=== PATIENT | female | born 1965 | race Caucasian/White ===

== ENCOUNTER 2018-05-16 08:43 | Inpatient (IN) | payer BC ==
[2018-05-16 10:37] VITALS: BMI 21.6
--- NOTE | 2018-05-16 13:09 | HP ---
CIWA Score - CIWA Score Nausea/Vomitin-Mild Nausea/No Vomiting Muscle Tremors: 3 Anxiety: 3 Agitation: 3 Paroxysmal Sweats: 3 Orientation: 0-Oriented Tacttile Disturbances: 1-Very Mild Itch/Numbness Auditory Disturbances: 0-None Visual Disturbances: 2-Mild Sensitivity Headache: 0-None Present CIWA-Ar Total Score: 16 Admission ROS BHS - HPI Chief Complaint: I thought I was going to , I need to detox from alcohol. m Allergies/Adverse Reactions: Allergies Allergy/AdvReac Type Severity Reaction Status Date / Time erythromycin base Allergy Severe Rash Verified 05/16/18 10:41 penicillin G Allergy Severe Rash Verified 05/16/18 10:41 History of Present Illness: %2 y/o f pt started drinking alcohol starting at age 13. Pt has h/o tremors, DT' s and holiday heart(A fib) who is now seeking detox. - Ebola screening Have you traveled outside of the country in the last 21 days: No Have you had contact with anyone from an Ebola affected area: No Have you been sick,other than usual withdrawal symptoms: No Do you have a fever: No - Review of Systems Constitutional: Chills, Diaphoresis, Loss of Appetite, Malaise, Night Sweats, Changes in sleep, Unintentional Wgt. Loss EENT: reports: Blurred Vision (OS> OD -dragged fovea), Double Vision (h/o detached retinas) Respiratory: reports: No Symptoms reported Cardiac: reports: Palpitations (a fib) GI: reports: Nausea, Poor Appetite, Indigestion, Abdominal cramping : reports: No Symptoms Reported Musculoskeletal: reports: No Symptoms Reported Integumentary: reports: Dryness Neuro: reports: Numbness, Seizure (withdrawal sz), Tingling, Tremors, Weakness, Unsteady Gait, Dizziness, Other (s/p fall hit occipital area at home . Went too [facility] Ed had a negative CT ; given info on concussion) Endocrine: reports: No Symptoms Reported, [place] Hematology: reports: No Symptoms Reported Psychiatric: reports: Anxious, Depressed Other Systems: Reviewed and Negative Patient History - Patient Medical History Hx Anemia: No Hx Asthma: No Hx Chronic Obstructive Pulmonary Disease (COPD): No Hx Cancer: No Hx Cardiac Disorders: Yes (atrial fibrillation in 12/2017) Hx Congestive Heart Failure: No Hx Hypertension: No Hx Hypercholesterolemia: No Hx Pacemaker: No HX Cerebrovascular Accident: No Hx Seizures: Yes (alcohol related-last episode was in 12/2017) Hx Dementia: No Hx Diabetes: No Hx Gastrointestinal Disorders: Yes (gastiritis) Hx Liver Disease: Yes (fatty liver ) Hx Genitourinary Disorders: No Hx Sexually Transmitted Disorders: No Hx Renal Disease (ESRD): No Hx Thyroid Disease: No Hx Human Immunodeficiency Virus (HIV): No Hx Hepatitis C: No Hx Depression: Yes Hx Suicide Attempt: No Hx Schizophrenia: No - Patient Surgical History Past Surgical History: No Hx Neurologic Surgery: No Hx Cataract Extraction: No Hx Cardiac Surgery: No Hx Lung Surgery: No Hx Breast Surgery: No Hx Breast Biopsy: No Hx Abdominal Surgery: No Hx Appendectomy: No Hx Cholecystectomy: No Hx Genitourinary Surgery: No Hx Section: Yes (x3) Hx Orthopedic Surgery: No Other Surgical History: h/o multiple detached retinas -opthamology Anesthesia Reaction: No - PPD History Previous Implant?: Yes Documented Results: Negative w/o proof Implanted On Prior [facility] Admission?: No PPD to be Administered?: Yes - Reproductive History Patient is a Female of Child Bearing Age (11 -55 yrs old): Yes Last Menstrual Period: 05/23/06 Patient : No - Smoking Cessation Smoking history: Never smoked Hx Chewing Tobacco Use: No Initiated information on smoking cessation: No 'Breaking Loose' booklet given: 05/16/18 - Substance & Tx. History Hx Alcohol Use: Yes Hx Substance Use: No Substance Use Type: Alcohol Hx Substance Use Treatment: Yes (multiple detox's and rehabs , [place], [place], [facility].) - Substances Abused Alcohol-wine Route: Oral Frequency: Daily Amount used: 4 pts.wine Age of first use: 13 Date of Last Use: 05/16/18 Family Disease History - Family Disease History Family Disease History: [place]: Father (prostate ca ), Respiratory: Sister (copd), Other: Mother (htn , dementia ) Admission Physical Exam BHS - Vital Signs Vital Signs: Vital Signs - 24 hr 05/16/18 10:34 Temperature 98 F Pulse Rate 95 H Respiratory 17 Rate Blood Pressure 139/91 52 y/o anxoius , tremulous f pt who is aox3 and cooperative with exam - Physical General Appearance: Yes: Appropriately Dressed, Thin, Tremorous, Anxious HEENTM: Yes: EOMI, Hearing grossly Normal, Normal Voice, JENNY Respiratory: Yes: Chest Non-Tender, Lungs Clear, Normal Breath Sounds, No Respiratory Distress Neck: Yes: Supple, Trachea in good position Breast: Yes: Breast Exam Deferred Cardiology: Yes: Irregularly Irregular Abdominal: Yes: Non Tender, Flat, Soft, Increased Bowel Sounds, Decreased BS Genitourinary: Yes: Within Normal Limits Back: Yes: Decreased Range of Motion Musculoskeletal: Yes: Back pain, Muscle weakness Extremities: Yes: Tremors Neurological: Yes: oracle consultant II-XII NML intact, Fully Oriented, Alert, Motor Strength 5/5, Normal Response, Depressed Affect Integumentary: Yes: Moist, Other (freckles) Lymphatic: Yes: Within Normal Limits - Diagnostic (1) Chronic alcoholism Current Visit: Yes Status: Chronic (2) A-fib Current Visit: Yes Status: Chronic (3) Gastritis Current Visit: Yes Status: Chronic Qualifiers: Chronicity: unspecified (4) Dupuytren's contracture of foot Current Visit: Yes Status: Chronic (5) Dupuytren's contracture of hand Current Visit: Yes Status: Chronic (6) Withdrawal seizures Current Visit: Yes Status: Chronic (7) Fatty liver Current Visit: Yes Status: Chronic Cleared for Admission [facility] - Detox or Rehab [facility] Level of Care: Medically Managed Detox Regimen/Protocol: Librium [facility] Breath Alcohol Content Breath Alcohol Content: 0.019 Urine Pregancy Test - Result Urine Test Results: Negative- NO Line Present Urine Drug Screen - Results Drug Screen Negative: No Urine Drug Screen Results: BZO-Benzodiazepines
[2018-05-16] MEDS ORDERED: MAG HYDROX/AL HYDROX/SIMETH 30 ML UNIT-DOSE CUP PO PRN (13:42)
[2018-05-16] MEDS ORDERED: ACETAMINOPHEN 325 MG TABLET (FP) PO PRN (13:42)
[2018-05-16] MEDS ORDERED: MENTHOL/PHENOL 1 EACH UD MM PRN (13:42)
[2018-05-16] MEDS ORDERED: P-EPHED 60MG/TRIPROLIDI 2.5MG TABLET PO PRN (13:42)
[2018-05-16] MEDS ORDERED: IBUPROFEN 400 MG TABLET (FP) PO PRN (13:42)
[2018-05-16] MEDS ORDERED: MAGNESIUM HYDROX 2400MG/30ML ORAL SUSPENSION 30 ML CUP PO PRN (13:42)
[2018-05-16] MEDS ORDERED: MAGNESIUM CITRATE 300 ML BOTTLE PO PRN (13:42)
[2018-05-16] MEDS ORDERED: guaiFENesin/D-METHORPHAN HB 10 ML UNIT-DOSE CUPS PO PRN (13:42)
[2018-05-16] MEDS ORDERED: chlordiazePOXIDE HCL 25 MG CAPSULE PO ONE (13:55)
--- NOTE | 2018-05-16 15:27 | EKG ---
Test Reason : Blood Pressure : / mmHG Vent. Rate : 087 BPM Atrial Rate : 087 BPM P-R Int : 092 ms QRS Dur : 082 ms QT Int : 396 ms P-R-T Axes : -22 054 051 degrees QTc Int : 476 ms SINUS RHYTHM WITH SHORT RI WITH PREMATURE SUPRAVENTRICULAR COMPLEXES OTHERWISE NORMAL ECG NO PREVIOUS ECGS AVAILABLE Confirmed by DAVID HARMON MD ([id number]) on 05/16/2018 3:26:44 PM Referred By: Confirmed By:DAVID HARMON MD
--- NOTE | 2018-05-16 16:27 | CONSULT ---
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 This is patient's first admission to detox at [facility]. Pt. admitted to for alcohol dependence. Substance Abuse History: Substance & Tx. History. Hx Alcohol Use: Yes. Hx Substance Use: No. Substance Use Type: Alcohol. Hx Substance Use Treatment: Yes (multiple detox's and rehabs , [place], [place], [facility].). - Substances Abused. Alcohol-wine. Route: Oral. Frequency: Daily. Amount used: 4 pts.wine. Age of first use: 13. Date of Last Use: 05/16/18 Medical History: h/o afib, Gastritis Psychiatric History: Patient's first psychiatric contact was in rehab (2013). She has only seen a psychiatrist when in detox/rehab facilities (mainly in [place] which is her place of residence) and has been tried on prozac, gabapentin, effexor and vistaril, and buspar. Diagnosis of Anxiety disorder. Patient's most recent prescription is the following: Effexor 25mg TID (has also accepted effexor 75mg XL in the past), Vistaril 25mg TID +buspar 15 BID + Gabapentin 600mg QID. Pt. has been nonadherent with medications for the previous two weeks due to h/o alcohol dependence. Pt. requesting to restart psychotropic medications. Pt. is a reliable historian. Pt. denies h/o suicide attempt. Physical/Sexual Abuse/Trauma History: denies. Mental Status Exam - Mental Status Exam Alert and Oriented to: Time, Place, Person Cognitive Function: Good Patient Appearance: Well Groomed Mood: Anxious, Hopeful Affect: Appropriate, Mood Congruent Patient Behavior: Appropriate, Cooperative Speech Pattern: Clear, Appropriate Voice Loudness: Normal Thought Process: Intact, Goal Oriented Thought Disorder: Not Present Hallucinations: Denies Suicidal Ideation: Denies Homicidal Ideation: Denies Insight/Judgement: Poor Sleep: Fair Appetite: Fair Muscle strength/Tone: Normal Gait/Station: Normal Psychiatric Findings - Problem List ([place] 1, 2,3) (1) Alcohol dependence with withdrawal Current Visit: Yes Status: Acute (2) Anxiety disorder Current Visit: Yes Status: Chronic - Initial Treatment Plan Initial Treatment Plan: Psychoeducation provided. Detoxification in progress. Will order Effexor 37.5mg ER (as per patient's request and has taken effexor ER in the past), buspar 15mg BID + gabapentin 300mg TID. Benefits and side effects discussed. Verbal consent given.
[2018-05-16] MEDS: chlordiazePOXIDE HCL 25 MG CAPSULE PO SCH ×2 (17:37→22:28)
[2018-05-16] MEDS: THIAMINE HCL 100 MG TABLET (FP) PO SCH (22:28)
[2018-05-16] MEDS: GABAPENTIN 300 MG CAPSULE (FP) PO SCH (22:29)
[2018-05-17] MEDS: chlordiazePOXIDE HCL 25 MG CAPSULE PO PRN (01:09)
[2018-05-17] MEDS: MELATONIN 5 MG TABLETS PO PRN (01:12)
[2018-05-17] MEDS: GABAPENTIN 300 MG CAPSULE (FP) PO SCH ×3 (06:20→22:21)
[2018-05-17] MEDS: chlordiazePOXIDE HCL 25 MG CAPSULE PO SCH ×4 (06:21→22:21)
[2018-05-17] MEDS: PRENATAL VITAMINS W/ FOLIC ACID TABLET (FP) PO SCH (10:42)
[2018-05-17] MEDS: VENLAFAXINE HCL 37.5 MG E.R. CAPSULE (FP) PO SCH (10:42)
[2018-05-17 10:54] LABS: CHLORIDE 92 mmol/L (98-107); POTASSIUM 4.1 mmol/L (3.5-5.1); SODIUM 135 mmol/L (136-145)
[2018-05-17 11:04] LABS: ALBUMIN 4.7 g/dl (3.4-5.0); ALK PHOS 68 U/L (45-117); ANION GAP 13 MMOL/L (8-16); BILIRUBIN,TOTAL 1.2 mg/dL (0.2-1.0); BLOOD UREA NITROGEN 18 mg/dL (7-18); CO2 30 mmol/L (21-32); CREATININE 0.9 mg/dL (0.55-1.02); GLUCOSE,RANDOM 95 mg/dL (74-106); SGOT/AST 128 U/L (15-37); SGPT/ALT 205 U/L (12-78); TOT PROT 7.8 g/dl (6.4-8.2)
[2018-05-17 11:40] LABS: HEMATOCRIT 40.5 % (32.4-45.2); HEMOGLOBIN 13.3 GM/dL (10.7-15.3); MCH 31.8 pg (25.7-33.7); MCHC 32.9 g/dl (32.0-36.0); MEAN CELL VOLUME 96.8 fl (80-96); MEAN PLT VOLUME 10.2 fl (7.5-11.1); PLATELET COUNT 108 K/MM3 (134-434); RBC 4.18 M/mm3 (3.60-5.2); RDW 13.3 % (11.6-15.6); WHITE BLOOD COUNT 4.5 K/mm3 (4.0-10.0)
[2018-05-17 12:34] LABS: URINE APPEARANCE CLEAR; URINE BILIRUBIN NEGATIVE (<2.0 mg/dL); URINE COLOR YELLOW; URINE GLUCOSE (UA) NEGATIVE (NEGATIVE); URINE KETONE NEGATIVE (NEGATIVE); URINE LEUK ESTERASE TRACE (NEGATIVE); URINE NITRITE NEGATIVE (NEGATIVE); URINE PROTEIN NEGATIVE (NEGATIVE); URINE UROBILINOGEN NEGATIVE mg/dL (0.2-1.0)
[2018-05-17 12:50] LABS: EPI CELLS RARE /HPF (FEW); URINE BACTERIA FEW /hpf (NONE SEEN)
[2018-05-17] MEDS: hydrOXYzine PAMOATE 25 MG CAPSULE (FP) PO PRN (22:20)
[2018-05-17] MEDS: LOPERAMIDE HCL 2 MG CAPSULE PO PRN (22:25)
--- NOTE | 2018-05-17 22:52 | PN ---
[facility] CIWA - CIWA Score Nausea/Vomitin-Mild Nausea/No Vomiting Muscle Tremors: 4-Moderate,w/Arms Extend Anxiety: 1-Mildly Anxious Agitation: 1-Slight > Activity Paroxysmal Sweats: No Perspiration Orientation: 0-Oriented Tacttile Disturbances: 0-None Auditory Disturbances: 0-None Visual Disturbances: 0-None Headache: 0-None Present CIWA-Ar Total Score: 7 S Progress Note (SOAP) Subjective: C/o nausea, w/ diarrhea, and shakes. Denies chest pain/SOB. Objective: A & O x 3. Tremors of hands. Vital Signs - 24 hr 05/17/18 05/17/18 05/17/18 00:00 03:30 08:38 Temperature 97.5 F L 97.2 F L Pulse Rate 96 H 75 Respiratory 18 18 16 Rate Blood Pressure 116/84 88/56 05/17/18 05/17/18 05/17/18 09:05 14:00 17:40 Temperature 97.9 F 97 F L 97.5 F L Pulse Rate 94 H 67 78 Respiratory 16 18 18 Rate Blood Pressure 102/62 101/64 101/69 05/17/18 22:39 Temperature 98.1 F Pulse Rate 79 Respiratory 18 Rate Blood Pressure 108/70 Laboratory Last Values WBC 4.5 K/mm3 (4.0-10.0) 05/17/18 06:00 RBC 4.18 M/mm3 (3.60-5.2) 05/17/18 06:00 Hgb 13.3 GM/dL (10.7-15.3) 05/17/18 06:00 Hct 40.5 % (32.4-45.2) 05/17/18 06:00 MCV 96.8 fl (80-96) H 05/17/18 06:00 MCH 31.8 pg (25.7-33.7) 05/17/18 06:00 MCHC 32.9 g/dl (32.0-36.0) 05/17/18 06:00 RDW 13.3 % (11.6-15.6) 05/17/18 06:00 Plt Count 108 K/MM3 (134-434) L 05/17/18 06:00 MPV 10.2 fl (7.5-11.1) 09/06/18 06:00 Sodium 135 mmol/L (136-145) L 05/17/18 06:00 Potassium 4.1 mmol/L (3.5-5.1) 05/17/18 06:00 Chloride 92 mmol/L (98-107) L 05/17/18 06:00 Carbon Dioxide 30 mmol/L (21-32) 05/17/18 06:00 Anion Gap 13 MMOL/L (8-16) 05/17/18 06:00 BUN 18 mg/dL (7-18) 05/17/18 06:00 Creatinine 0.9 mg/dL (0.55-1.02) 05/17/18 06:00 Creat Clearance w eGFR > 60 (>60) 05/17/18 06:00 Random Glucose 95 mg/dL (74-106) 05/17/18 06:00 Calcium 10.0 mg/dL (8.5-10.1) 05/17/18 06:00 Total Bilirubin 1.2 mg/dL (0.2-1.0) H 05/17/18 06:00 AST 128 U/L (15-37) H 05/17/18 06:00 ALT 205 U/L (12-78) H 05/17/18 06:00 Alkaline Phosphatase 68 U/L (45-117) 05/17/18 06:00 Total Protein 7.8 g/dl (6.4-8.2) 05/17/18 06:00 Albumin 4.7 g/dl (3.4-5.0) 05/17/18 06:00 Urine Color Yellow 05/17/18 11:25 Urine Appearance Clear 05/17/18 11:25 Urine pH 6.0 (5.0-8.0) 05/17/18 11:25 Ur Specific [place] 1.008 (1.001-1.035) 05/17/18 11:25 Urine Protein Negative (NEGATIVE) 05/17/18 11:25 Urine Glucose (UA) Negative (NEGATIVE) 05/17/18 11:25 Urine Ketones Negative (NEGATIVE) 05/17/18 11:25 Urine Blood Negative (NEGATIVE) 05/17/18 11:25 Urine Nitrite Negative (NEGATIVE) 05/17/18 11:25 Urine Bilirubin Negative (<2.0 mg/dL) 05/17/18 11:25 Urine Urobilinogen Negative mg/dL (0.2-1.0) 05/17/18 11:25 Ur Leukocyte Esterase Trace (NEGATIVE) 05/17/18 11:25 Urine WBC (Auto) 4 /hpf (3-5) 05/17/18 11:25 Urine RBC (Auto) <1 /hpf (0-3) 05/17/18 11:25 Ur Epithelial Cells Rare /HPF (FEW) 05/17/18 11:25 Urine Bacteria Few /hpf (NONE SEEN) 05/17/18 11:25 Labs reviewed. Assessment: Alcohol withdrawal symptoms. Elevated ALT/AST Plan: Continue detox. Monitor
[2018-05-17] MEDS: THIAMINE HCL 100 MG TABLET (FP) PO SCH (23:37)
[2018-05-18] MEDS: chlordiazePOXIDE HCL 25 MG CAPSULE PO SCH ×2 (05:36→10:19)
[2018-05-18] MEDS: GABAPENTIN 300 MG CAPSULE (FP) PO SCH ×3 (05:36→22:18)
[2018-05-18] MEDS: LOPERAMIDE HCL 2 MG CAPSULE PO PRN (05:39)
[2018-05-18] MEDS: VENLAFAXINE HCL 37.5 MG E.R. CAPSULE (FP) PO SCH (10:18)
[2018-05-18] MEDS: PRENATAL VITAMINS W/ FOLIC ACID TABLET (FP) PO SCH (10:18)
[2018-05-18] MEDS: chlordiazePOXIDE 5 MG CAPSULE PO SCH ×2 (17:37→22:19)
--- NOTE | 2018-05-18 18:20 | PN ---
[facility] CIWA - CIWA Score Nausea/Vomitin-No Nausea/No Vomiting Muscle Tremors: 4-Moderate,w/Arms Extend Anxiety: 4-Mod. Anxious/Guarded Agitation: 1-Slight > Activity Paroxysmal Sweats: No Perspiration Orientation: 0-Oriented Tacttile Disturbances: 0-None Auditory Disturbances: 0-None Visual Disturbances: 0-None Headache: 0-None Present CIWA-Ar Total Score: 9 BHS Progress Note (SOAP) Subjective: Still feeling anxious and shaky. Objective: A&O x3. Minimally communicative. Mod tremors of hands. Gait steady. Abd S/NT. Vital Signs 05/18/18 05/18/18 13:39 17:29 Temperature 95.5 F L 97.0 F L Pulse Rate 73 69 Respiratory 18 18 Rate Blood Pressure 109/69 106/69 Laboratory Last Values WBC 4.5 K/mm3 (4.0-10.0) 05/17/18 06:00 RBC 4.18 M/mm3 (3.60-5.2) 05/17/18 06:00 Hgb 13.3 GM/dL (10.7-15.3) 05/17/18 06:00 Hct 40.5 % (32.4-45.2) 05/17/18 06:00 MCV 96.8 fl (80-96) H 05/17/18 06:00 MCH 31.8 pg (25.7-33.7) 05/17/18 06:00 MCHC 32.9 g/dl (32.0-36.0) 05/17/18 06:00 RDW 13.3 % (11.6-15.6) 05/17/18 06:00 Plt Count 108 K/MM3 (134-434) L 05/17/18 06:00 MPV 10.2 fl (7.5-11.1) 05/17/18 06:00 Sodium 135 mmol/L (136-145) L 05/17/18 06:00 Potassium 4.1 mmol/L (3.5-5.1) 05/17/18 06:00 Chloride 92 mmol/L (98-107) L 05/17/18 06:00 Carbon Dioxide 30 mmol/L (21-32) 05/17/18 06:00 Anion Gap 13 MMOL/L (8-16) 09/06/18 06:00 BUN 18 mg/dL (7-18) 05/17/18 06:00 Creatinine 0.9 mg/dL (0.55-1.02) 05/17/18 06:00 Creat Clearance w eGFR > 60 (>60) 05/17/18 06:00 Random Glucose 95 mg/dL (74-106) 05/17/18 06:00 Calcium 10.0 mg/dL (8.5-10.1) 05/17/18 06:00 Total Bilirubin 1.2 mg/dL (0.2-1.0) H 05/17/18 06:00 AST 128 U/L (15-37) H 05/17/18 06:00 ALT 205 U/L (12-78) H 05/17/18 06:00 Alkaline Phosphatase 68 U/L (45-117) 05/17/18 06:00 Total Protein 7.8 g/dl (6.4-8.2) 05/17/18 06:00 Albumin 4.7 g/dl (3.4-5.0) 05/17/18 06:00 Urine Color Yellow 05/17/18 11:25 Urine Appearance Clear 05/17/18 11:25 Urine pH 6.0 (5.0-8.0) 05/17/18 11:25 Ur Specific [place] 1.008 (1.001-1.035) 05/17/18 11:25 Urine Protein Negative (NEGATIVE) 05/17/18 11:25 Urine Glucose (UA) Negative (NEGATIVE) 05/17/18 11:25 Urine Ketones Negative (NEGATIVE) 05/17/18 11:25 Urine Blood Negative (NEGATIVE) 05/17/18 11:25 Urine Nitrite Negative (NEGATIVE) 05/17/18 11:25 Urine Bilirubin Negative (<2.0 mg/dL) 05/17/18 11:25 Urine Urobilinogen Negative mg/dL (0.2-1.0) 05/17/18 11:25 Ur Leukocyte Esterase Trace (NEGATIVE) 05/17/18 11:25 Urine WBC (Auto) 4 /hpf (3-5) 05/17/18 11:25 Urine RBC (Auto) <1 /hpf (0-3) 05/17/18 11:25 Ur Epithelial Cells Rare /HPF (FEW) 05/17/18 11:25 Urine Bacteria Few /hpf (NONE SEEN) 05/17/18 11:25 RPR Titer Nonreactive (NONREACTIVE) 05/17/18 06:00 Labs reviewed. Assessment: Withdrawal symptoms. Elevated liver enzymes. Plan: Continue detox.
[2018-05-18] MEDS: THIAMINE HCL 100 MG TABLET (FP) PO SCH (22:18)
[2018-05-18] MEDS: MELATONIN 5 MG TABLETS PO PRN (22:19)
[2018-05-19] MEDS: chlordiazePOXIDE 5 MG CAPSULE PO SCH ×2 (05:56→10:51)
[2018-05-19] MEDS: GABAPENTIN 300 MG CAPSULE (FP) PO SCH ×3 (05:56→22:16)
[2018-05-19] MEDS: VENLAFAXINE HCL 37.5 MG E.R. CAPSULE (FP) PO SCH (10:50)
[2018-05-19] MEDS: PRENATAL VITAMINS W/ FOLIC ACID TABLET (FP) PO SCH (10:50)
--- NOTE | 2018-05-19 10:55 | PN ---
[facility] Progress Note Note: Vital Signs Temperature 97.0 F L 05/19/18 09:51 Pulse Rate 79 05/19/18 09:51 Respiratory Rate 18 05/19/18 09:51 Blood Pressure 113/66 05/19/18 09:51 O2 Sat by Pulse Oximetry (%) Laboratory Last Values WBC 4.5 K/mm3 (4.0-10.0) 05/17/18 06:00 RBC 4.18 M/mm3 (3.60-5.2) 05/17/18 06:00 Hgb 13.3 GM/dL (10.7-15.3) 05/17/18 06:00 Hct 40.5 % (32.4-45.2) 05/17/18 06:00 MCV 96.8 fl (80-96) H 05/17/18 06:00 MCH 31.8 pg (25.7-33.7) 05/17/18 06:00 MCHC 32.9 g/dl (32.0-36.0) 05/17/18 06:00 RDW 13.3 % (11.6-15.6) 05/17/18 06:00 Plt Count 108 K/MM3 (134-434) L 05/17/18 06:00 MPV 10.2 fl (7.5-11.1) 05/17/18 06:00 Sodium 135 mmol/L (136-145) L 05/17/18 06:00 Potassium 4.1 mmol/L (3.5-5.1) 05/17/18 06:00 Chloride 92 mmol/L (98-107) L 05/17/18 06:00 Carbon Dioxide 30 mmol/L (21-32) 05/17/18 06:00 Anion Gap 13 MMOL/L (8-16) 05/17/18 06:00 BUN 18 mg/dL (7-18) 05/17/18 06:00 Creatinine 0.9 mg/dL (0.55-1.02) 05/17/18 06:00 Creat Clearance w eGFR > 60 (>60) 05/17/18 06:00 Random Glucose 95 mg/dL (74-106) 05/17/18 06:00 Calcium 10.0 mg/dL (8.5-10.1) 05/17/18 06:00 Total Bilirubin 1.2 mg/dL (0.2-1.0) H 05/17/18 06:00 AST 128 U/L (15-37) H 05/17/18 06:00 ALT 205 U/L (12-78) H 05/17/18 06:00 Alkaline Phosphatase 68 U/L (45-117) 05/17/18 06:00 Total Protein 7.8 g/dl (6.4-8.2) 05/17/18 06:00 Albumin 4.7 g/dl (3.4-5.0) 05/17/18 06:00 Urine Color Yellow 05/17/18 11:25 Urine Appearance Clear 05/17/18 11:25 Urine pH 6.0 (5.0-8.0) 05/17/18 11:25 Ur Specific [place] 1.008 (1.001-1.035) 05/17/18 11:25 Urine Protein Negative (NEGATIVE) 05/17/18 11:25 Urine Glucose (UA) Negative (NEGATIVE) 05/17/18 11:25 Urine Ketones Negative (NEGATIVE) 05/17/18 11:25 Urine Blood Negative (NEGATIVE) 05/17/18 11:25 Urine Nitrite Negative (NEGATIVE) 05/17/18 11:25 Urine Bilirubin Negative (<2.0 mg/dL) 05/17/18 11:25 Urine Urobilinogen Negative mg/dL (0.2-1.0) 05/17/18 11:25 Ur Leukocyte Esterase Trace (NEGATIVE) 05/17/18 11:25 Urine WBC (Auto) 4 /hpf (3-5) 05/17/18 11:25 Urine RBC (Auto) <1 /hpf (0-3) 05/17/18 11:25 Ur Epithelial Cells Rare /HPF (FEW) 05/17/18 11:25 Urine Bacteria Few /hpf (NONE SEEN) 05/17/18 11:25 RPR Titer Nonreactive (NONREACTIVE) 05/17/18 06:00 c/o of feeling mild fatigue, and anxious and reports improvement during her stay. Patient Aox3 no distress no adventitious breath sounds ambulating in the unit withdrawal sx increase PO fluids continue to monitor follow up with primary care provider post d/c
[2018-05-19] MEDS: chlordiazePOXIDE HCL 25 MG CAPSULE PO PRN (13:13)
[2018-05-19] MEDS: chlordiazePOXIDE HCL 10 MG CAPSULE PO SCH ×2 (22:14→22:15)
[2018-05-19] MEDS: hydrOXYzine PAMOATE 25 MG CAPSULE (FP) PO PRN (22:15)
[2018-05-19] MEDS: THIAMINE HCL 100 MG TABLET (FP) PO SCH (22:15)
[2018-05-19] MEDS: MELATONIN 5 MG TABLETS PO PRN (22:16)
[2018-05-20] MEDS: GABAPENTIN 300 MG CAPSULE (FP) PO SCH (05:27)
[2018-05-20] MEDS: chlordiazePOXIDE HCL 10 MG CAPSULE PO SCH ×2 (05:27→10:11)
--- NOTE | 2018-05-20 09:27 | DS ---
[facility] Detox Discharge Summary Admission Date: 05/16/18 Discharge Date: 05/20/18 - History Present History: Alcohol Dependence Additional Comments: 52 years old female admitted on 05/16/18 for alcohol withdrawal sx completed alcohol detox regimen tolerated well denies alcohol withdrawal sx alert oriented x 3 no acute distress aftercare [facility] - Physical Exam Results Vital Signs: Vital Signs Temperature 97.9 F 05/20/18 06:00 Pulse Rate 71 05/20/18 06:00 Respiratory Rate 18 05/20/18 06:00 Blood Pressure 104/67 05/20/18 06:00 O2 Sat by Pulse Oximetry (%) Pertinent Admission Physical Exam Findings: alcohol withdrawal sx Vital Signs Temperature 98.2 F 05/20/18 09:38 Pulse Rate 74 05/20/18 09:38 Respiratory Rate 18 05/20/18 09:38 Blood Pressure 129/78 05/20/18 09:38 O2 Sat by Pulse Oximetry (%) Laboratory Last Values WBC 4.5 K/mm3 (4.0-10.0) 05/17/18 06:00 RBC 4.18 M/mm3 (3.60-5.2) 05/17/18 06:00 Hgb 13.3 GM/dL (10.7-15.3) 05/17/18 06:00 Hct 40.5 % (32.4-45.2) 05/17/18 06:00 MCV 96.8 fl (80-96) H 05/17/18 06:00 MCH 31.8 pg (25.7-33.7) 05/17/18 06:00 MCHC 32.9 g/dl (32.0-36.0) 05/17/18 06:00 RDW 13.3 % (11.6-15.6) 05/17/18 06:00 Plt Count 108 K/MM3 (134-434) L 05/17/18 06:00 MPV 10.2 fl (7.5-11.1) 05/17/18 06:00 Sodium 135 mmol/L (136-145) L 05/17/18 06:00 Potassium 4.1 mmol/L (3.5-5.1) 05/17/18 06:00 Chloride 92 mmol/L (98-107) L 05/17/18 06:00 Carbon Dioxide 30 mmol/L (21-32) 05/17/18 06:00 Anion Gap 13 MMOL/L (8-16) 05/17/18 06:00 BUN 18 mg/dL (7-18) 05/17/18 06:00 Creatinine 0.9 mg/dL (0.55-1.02) 05/17/18 06:00 Creat Clearance w eGFR > 60 (>60) 05/17/18 06:00 Random Glucose 95 mg/dL (74-106) 05/17/18 06:00 Calcium 10.0 mg/dL (8.5-10.1) 05/17/18 06:00 Total Bilirubin 1.2 mg/dL (0.2-1.0) H 05/17/18 06:00 AST 128 U/L (15-37) H 05/17/18 06:00 ALT 205 U/L (12-78) H 05/17/18 06:00 Alkaline Phosphatase 68 U/L (45-117) 05/17/18 06:00 Total Protein 7.8 g/dl (6.4-8.2) 05/17/18 06:00 Albumin 4.7 g/dl (3.4-5.0) 05/17/18 06:00 Urine Color Yellow 05/17/18 11:25 Urine Appearance Clear 05/17/18 11:25 Urine pH 6.0 (5.0-8.0) 05/17/18 11:25 Ur Specific [place] 1.008 (1.001-1.035) 05/17/18 11:25 Urine Protein Negative (NEGATIVE) 05/17/18 11:25 Urine Glucose (UA) Negative (NEGATIVE) 05/17/18 11:25 Urine Ketones Negative (NEGATIVE) 05/17/18 11:25 Urine Blood Negative (NEGATIVE) 05/17/18 11:25 Urine Nitrite Negative (NEGATIVE) 05/17/18 11:25 Urine Bilirubin Negative (<2.0 mg/dL) 05/17/18 11:25 Urine Urobilinogen Negative mg/dL (0.2-1.0) 05/17/18 11:25 Ur Leukocyte Esterase Trace (NEGATIVE) 05/17/18 11:25 Urine WBC (Auto) 4 /hpf (3-5) 05/17/18 11:25 Urine RBC (Auto) <1 /hpf (0-3) 05/17/18 11:25 Ur Epithelial Cells Rare /HPF (FEW) 05/17/18 11:25 Urine Bacteria Few /hpf (NONE SEEN) 05/17/18 11:25 RPR Titer Nonreactive (NONREACTIVE) 05/17/18 06:00 lab noted discuss alcohol related liver enzyme elevation - Treatment Hospital Course: Detox Protocol Followed, Detoxed Safely, Responded well, Discharged Condition Good, Rehab Referral Accepted Patient has Accepted a Rehab Referral to: [facility] - Medication Discharge Medications: Ambulatory Orders Buspirone HCl [Buspar -] 15 mg PO BID #60 tablet 05/16/18 Gabapentin [Neurontin -] 300 mg PO TID #90 capsule 05/16/18 Venlafaxine HCl ER [Effexor Xr -] 37.5 mg PO DAILY #30 cap.er.24h 05/16/18 Venlafaxine HCl [Effexor -] 50 mg PO BID 05/16/18 hydrOXYzine PAMOATE [Vistaril -] 25 mg PO TID PRN 05/16/18 Gabapentin [Neurontin] 600 mg PO QID #120 tablet 05/20/18 - Diagnosis (1) Alcohol dependence with withdrawal Status: Acute Qualifiers: Complication of substance-induced condition: uncomplicated Qualified Code(s ): F10.230 - Alcohol dependence with withdrawal, uncomplicated (2) Elevated liver enzymes Status: Chronic (3) Fatty liver Status: Chronic - AMA Did Patient Leave Against Medical Advice: No
[2018-05-20] MEDS: PRENATAL VITAMINS W/ FOLIC ACID TABLET (FP) PO SCH (09:28)
[2018-05-20] MEDS: hydrOXYzine PAMOATE 25 MG CAPSULE (FP) PO PRN (09:28)
[2018-05-20] MEDS: VENLAFAXINE HCL 37.5 MG E.R. CAPSULE (FP) PO SCH (09:28)
[2018-05-20 09:39] VITALS: BP 129/78; PULSE 74; TEMP 98.2
== END 2018-05-20 11:15 | disposition home or self-care (01) | DRG 897 ==
LOC: YASAS 08:43 → Y6N 12:42
PROC: HZ2ZZZZ Detoxification Services for Substance Abuse Treatment (ICD-10-PCS; principal; 2018-05-16)
DX: F10.230 Alcohol dependence with withdrawal, uncomplicated (principal); G40.509 Epileptic seizures related to external causes, not intractable, without status epilepticus; F41.9 Anxiety disorder, unspecified; R74.8 Abnormal levels of other serum enzymes; R94.5 Abnormal results of liver function studies; K76.0 Fatty (change of) liver, not elsewhere classified; I48.91 Unspecified atrial fibrillation; M72.0 Palmar fascial fibromatosis [Dupuytren]; Z88.0 Allergy status to penicillin; Z88.1 Allergy status to other antibiotic agents
CPT/HCPCS: 36415; 80053; 81003; 81015; 85027; 86593; 93005; 93010